=== PATIENT | female | born 1965 | race Caucasian/White ===

== ENCOUNTER 2016-08-18 12:16 | Day surgery (SDC) | payer MEDICAID ==
[2016-08-18] MEDS ORDERED: LIDOCAINE 1% 5 ML SDV ONE ×2 (12:34→12:36)
[2016-08-18] MEDS ORDERED: MIDAZOLAM 2 MG/2 ML VIAL ONE (12:56)
[2016-08-18] MEDS ORDERED: fentaNYL 100 MCG/2 ML INJ ONE (12:56)
[2016-08-18] MEDS ORDERED: LIDOCAINE 1% 2 ML INJ ID PRN (13:01)
[2016-08-18] MEDS ORDERED: NS 500 ML IV SCH (13:15)
--- NOTE | 2016-08-18 14:29 | GPN ---
[f rep st] PROCEDURE NOTE PROCEDURE: Colonoscopy. INDICATIONS: The patient is a 50-year-old female who presents for routine colon cancer screening. DESCRIPTION OF PROCEDURE: After proper consent was obtained, patient was placed in the left lateral decubitus position and received 75 mcg intravenous fentanyl, 6 mg intravenous Versed. Video colono scope was introduced through the anus and rectum, up left colon, across transverse colon and then ri ght colon to the cecum. Findings were as follows: (1) normal colonoscopic exam. No polyps, tumors or lesions. (2) Ileocecal valve was identified and photographed. At this point, instrument was removed. Patient tolerated the procedure well, was returned to the re covery room in stable condition. RECOMMENDATIONS: Patient should continue routine colon cancer screening. Next colonoscopy in 10 ye ars' time. /[id number]/MODL
== END 2016-08-18 14:50 | disposition home health service (06) ==
LOC: FSGY 12:16
PROVIDERS: ATTEND Internal Medicine Gastroenterology
PROC: 0DJD8ZZ Inspection of Lower Intestinal Tract, Via Natural or Artificial Opening Endoscopic (ICD-10-PCS; principal; 2016-08-18 13:00)
DX: Z12.11 Encounter for screening for malignant neoplasm of colon (principal); E03.9 Hypothyroidism, unspecified; G62.9 Polyneuropathy, unspecified; R20.2 Paresthesia of skin
CPT/HCPCS: J2250; J3010

== ENCOUNTER → 2016-09-14 | Outpatient (CLI) | payer MEDICAID | LOC: FIMAGING 08:49 | PROVIDERS: ATTEND Internal Medicine | DX: Z13.820 Encounter for screening for osteoporosis (principal); Z82.62 Family history of osteoporosis; Z79.890 Hormone replacement therapy; E07.9 Disorder of thyroid, unspecified | CPT/HCPCS: G0202 ==

== ENCOUNTER → 2017-09-19 | Outpatient (CLI) | payer MEDICAID | LOC: FIMAGING 09:02 | PROVIDERS: ATTEND Obstetrics & Gynecology | DX: Z12.31 Encounter for screening mammogram for malignant neoplasm of breast (principal) ==

== ENCOUNTER → 2018-10-19 | Outpatient (CLI) | payer MEDICAID | LOC: FIMAGING 12:09 | PROVIDERS: ATTEND Obstetrics & Gynecology | DX: Z12.31 Encounter for screening mammogram for malignant neoplasm of breast (principal) ==

== ENCOUNTER → 2018-11-07 | Outpatient (CLI) | payer MEDICAID | LOC: FIMAGING 10:05 | PROVIDERS: ATTEND Obstetrics & Gynecology | DX: Z13.820 Encounter for screening for osteoporosis (principal); Z78.0 Asymptomatic menopausal state; Z79.899 Other long term (current) drug therapy ==